=== PATIENT | male | born 1945 | race Hispanic/Latino ===

== ENCOUNTER 2021-11-07 09:06 | Inpatient (IN) | payer MEDICARE ==
[~2021-11-07] VITALS: Ht 167.6 cm; Wt 74.8 kg
[2021-11-07 10:18] LABS: BASOPHILS % 0.3 % (0.0-1.0); EOSINOPHILS # (AUTO) 0.2 (0.0-0.4); EOSINOPHILS % 2.6 % (0.0-6.0); LYMPHOCYTES # (AUTO) 1.3 (1.0-3.2); LYMPHOCYTES % 15.6 % (18.0-39.1); MEAN CORPUSCULAR HEMOGLOBIN 31.9 pg (28-32); MEAN CORPUSCULAR HGB CONC 30.4 g/dL (31-35); MEAN CORPUSCULAR VOLUME 104.9 fL (81-99); MONOCYTES # (AUTO) 0.7 (0.2-0.8); MONOCYTES % 8.1 % (4.4-11.3); NEUTROPHILS # (AUTO) 6.2 (2.1-6.9); NEUTROPHILS % 72.5 % (38.7-80.0); PLATELET COUNT 164 x10e3/uL (140-360); RED BLOOD COUNT 1.82 x10e6/uL (4.3-5.7); RED CELL DISTRIBUTION WIDTH 14.9 % (11.7-14.4)
[2021-11-07 10:20] LABS: HEMATOCRIT 19.1 % (38.2-49.6); HEMOGLOBIN 5.8 g/dL (14.0-18.0)
[2021-11-07 10:34] LABS: INR 0.95; PROTHROMBIN TIME 13.6 seconds (11.9-14.5)
[2021-11-07 10:35] LABS: PARTIAL THROMBOPLASTIN TIME 28.6 seconds (23.8-35.5)
[2021-11-07 10:48] LABS: ALANINE AMINOTRANSFERASE 12 IU/L (0-55); ALBUMIN/GLOBULIN RATIO 0.9 (0.8-2.0); ALKALINE PHOSPHATASE 64 IU/L (40-150); ANION GAP 25.1 mmol/L (8-16); BLOOD UREA NITROGEN 116 mg/dL (7-26); BUN/CREATININE RATIO 9 (6-25); CALCIUM 7.2 mg/dL (8.4-10.2); CARBON DIOXIDE 19 mmol/L (22-29); CHLORIDE 101 mmol/L (98-107); CREATINE KINASE 75 IU/L (30-200); CREATININE, SERUM 12.98 mg/dL (0.72-1.25); EST GLOMERULAR FILTRATION RATE 4 ML/MIN (60-); GLUCOSE 132 mg/dL (74-118); SODIUM 138 mmol/L (136-145)
[2021-11-07 11:05] LABS: MAGNESIUM 4.3 MG/DL (1.3-2.1); POTASSIUM 7.1 mmol/L (3.5-5.1)
[2021-11-07] MEDS ORDERED: SODIUM BICARBONATE 8.4% INJ 50 ML SYR IV STA (11:05)
[2021-11-07] MEDS ORDERED: ALBUTEROL SULF 0.083% NEB SOLN 3 ML NEB NEB STA (11:05)
[2021-11-07] MEDS ORDERED: DEXTROSE 50% SYRINGE 50 ML IV STA (11:05)
[2021-11-07] MEDS ORDERED: INSULIN REGULAR, HUMAN 100 UNIT/1 ML IV ONE (11:15)
[2021-11-07] MEDS ORDERED: CALCIUM GLUCONATE 10% INJ 4.65 MEQ in SODIUM CHLORIDE 0.9% 100 ML IV ONE (11:30)
[2021-11-07] MEDS ORDERED: DEXTROSE 50% SYRINGE 50 ML IV PRN (12:00)
[2021-11-07 13:30] LABS: CREATINE KINASE 74 IU/L (30-200)
[2021-11-07] MEDS: Morphine 2mg Syringe 2 MG/ML SYR IV PRN ×2 (14:29→21:58)
[2021-11-07] MEDS: ONDANSETRON HCL INJ 2MG/ML 2ML 2 MG/ML VIAL IV PRN ×2 (14:29→22:00)
[2021-11-07] MEDS ORDERED: SOD POLYSTYRENE SULFONATE SUSP 15 GM/60 ML BTL PO ONE (14:45)
[2021-11-07 15:09] LABS: FERRITIN 80.21 ng/mL (21.81-274.66)
[2021-11-07 15:39] VITALS: BP 125/56
[2021-11-07] MEDS ORDERED: FLOMAX0.4 MG PO (15:59)
[2021-11-07] MEDS ORDERED: ASPIRIN81 MG PO (15:59)
[2021-11-07] MEDS ORDERED: PLAVIX75 MG PO (15:59)
[2021-11-07 16:00] VITALS: BP 125/56
[2021-11-07] MEDS: INSULIN LISPRO 100 UNIT/1 ML 3ML VIAL SQ SCH ×2 (16:30→21:00)
[2021-11-07] MEDS ORDERED: SODIUM CHLORIDE 0.9% 1000ML 2,000 ML ONE (17:19)
[2021-11-07] MEDS ORDERED: SODIUM CHLORIDE 0.9% 250ML 250 ML ONE (17:54)
[2021-11-07 20:00] VITALS: BP 164/78
[2021-11-07 20:22] LABS: CREATINE KINASE 71 IU/L (30-200)
[2021-11-07 21:00] VITALS: BP 164/78
[2021-11-07] MEDS: TAMSULOSIN HCL 0.4 MG CAP PO SCH ×2 (21:00→23:55)
[2021-11-08] MEDS ORDERED: Vancomycin IV 1 GM in SODIUM CHLORIDE 0.9% 250ML 250 ML IV ONE ×2
[2021-11-08] MEDS ORDERED: ACETAMINOPHEN 1000 MG/100 ML IV PRN
[2021-11-08] MEDS ORDERED: SODIUM CHLORIDE 0.9% 250ML 250 ML ONE ×2 (00:09→00:21)
[2021-11-08] MEDS ORDERED: SODIUM CHLORIDE 0.9% 100 ML ONE (00:22)
[2021-11-08] MEDS ORDERED: ONDANSETRON HCL INJ 2MG/ML 2ML 2 MG/ML VIAL IV PRN (01:15)
[2021-11-08] MEDS ORDERED: LORAZEPAM INJ 2 MG/ML VIAL IV PRN (01:15)
[2021-11-08] MEDS ORDERED: HYDRALAZINE HCL 20 MG/ML VIAL IV PRN (01:15)
[2021-11-08 04:00] VITALS: BP 92/44
[2021-11-08 05:03] LABS: BASOPHILS % 0.3 % (0.0-1.0); EOSINOPHILS % 0.3 % (0.0-6.0); HEMATOCRIT 22.6 % (38.2-49.6); LYMPHOCYTES # (AUTO) 0.7 (1.0-3.2); LYMPHOCYTES % 6.1 % (18.0-39.1); MEAN CORPUSCULAR VOLUME 103.2 fL (81-99); MONOCYTES # (AUTO) 1.2 (0.2-0.8); MONOCYTES % 10.2 % (4.4-11.3); NEUTROPHILS # (AUTO) 9.3 (2.1-6.9); NEUTROPHILS % 82.4 % (38.7-80.0); PLATELET COUNT 126 x10e3/uL (140-360); RED BLOOD COUNT 2.19 x10e6/uL (4.3-5.7); RED CELL DISTRIBUTION WIDTH 15.9 % (11.7-14.4)
[2021-11-08 05:38] LABS: ALBUMIN 2.7 g/dL (3.5-5.0); ALBUMIN/GLOBULIN RATIO 0.8 (0.8-2.0); CALCIUM 7.1 mg/dL (8.4-10.2); CREATININE, SERUM 6.38 mg/dL (0.72-1.25)
[2021-11-08 05:59] LABS: CREATINE KINASE 73 IU/L (30-200)
[2021-11-08] MEDS: INSULIN LISPRO 100 UNIT/1 ML 3ML VIAL SQ SCH ×4 (07:30→20:32)
[2021-11-08 08:00] VITALS: BP 161/65
[2021-11-08] MEDS ORDERED: SODIUM CHLORIDE 0.9% 1000ML 2,000 ML IV PRN (08:15)
[2021-11-08] MEDS ORDERED: HEPARIN SOD (PORCINE) 1000 UNIT/ML SDV IV PRN ×2 (08:15→14:45)
[2021-11-08] MEDS: AMLODIPINE BESYLATE 5 MG TAB PO SCH (08:41)
[2021-11-08] MEDS ORDERED: ASPIRIN 81 MG CHEW TAB PO SCH (09:00)
[2021-11-08] MEDS ORDERED: CLOPIDOGREL BISULFATE 75 MG TAB PO SCH (09:00)
[2021-11-08] MEDS ORDERED: ACETAMINOPHEN 325 MG TAB PO PRN (10:00)
[2021-11-08 11:50] VITALS: BP 98/45
[2021-11-08] MEDS: EPOETIN ALFA-EPBX 10,000 UNIT/ML VIAL SC SCH (14:02)
[2021-11-08 16:10] VITALS: BP 108/56
[2021-11-08 20:00] VITALS: BP 133/62
[2021-11-08 21:00] VITALS: BP 133/62
[2021-11-08] MEDS: TAMSULOSIN HCL 0.4 MG CAP PO SCH (21:37)
[2021-11-09] VITALS (8 sets, daily range): BP systolic 106–165; BP diastolic 50–90
[2021-11-09 06:23] LABS: BASOPHILS % 0.4 % (0.0-1.0); EOSINOPHILS # (AUTO) 0.1 (0.0-0.4); EOSINOPHILS % 0.7 % (0.0-6.0); HEMATOCRIT 24.5 % (38.2-49.6); HEMOGLOBIN 7.4 g/dL (14.0-18.0); LYMPHOCYTES # (AUTO) 1.2 (1.0-3.2); LYMPHOCYTES % 11.2 % (18.0-39.1); MEAN CORPUSCULAR HEMOGLOBIN 31.5 pg (28-32); MEAN CORPUSCULAR HGB CONC 30.2 g/dL (31-35); MEAN CORPUSCULAR VOLUME 104.3 fL (81-99); MONOCYTES # (AUTO) 1.4 (0.2-0.8); MONOCYTES % 13.1 % (4.4-11.3); NEUTROPHILS # (AUTO) 7.8 (2.1-6.9); PLATELET COUNT 103 x10e3/uL (140-360); RED BLOOD COUNT 2.35 x10e6/uL (4.3-5.7)
[2021-11-09 06:37] LABS: ANION GAP 14.4 mmol/L (8-16); CALCIUM 7.7 mg/dL (8.4-10.2); CREATININE, SERUM 4.33 mg/dL (0.72-1.25); POTASSIUM 5.4 mmol/L (3.5-5.1)
[2021-11-09] MEDS: INSULIN LISPRO 100 UNIT/1 ML 3ML VIAL SQ SCH ×4 (07:30→20:56)
[2021-11-09] MEDS: AMLODIPINE BESYLATE 5 MG TAB PO SCH ×2 (09:00→09:31)
[2021-11-09] MEDS ORDERED: MANNITOL 25% 12.5GM/50ML 50 ML IV PRN (13:15)
[2021-11-09] MEDS ORDERED: ALBUMIN 25% 12.5GM 50ML 50 ML IV PRN (13:15)
[2021-11-09] MEDS ORDERED: HEPARIN SOD (PORCINE) 1000 UNIT/ML SDV IV PRN (13:15)
[2021-11-09] MEDS ORDERED: SODIUM CHLORIDE 0.9% 1000ML 2,000 ML IV PRN (13:15)
[2021-11-09] MEDS: TAMSULOSIN HCL 0.4 MG CAP PO SCH (20:56)
[2021-11-10] VITALS (8 sets, daily range): BP systolic 146–166; BP diastolic 63–78
[2021-11-10] MEDS: INSULIN LISPRO 100 UNIT/1 ML 3ML VIAL SQ SCH ×4 (07:30→20:33)
[2021-11-10] MEDS: AMLODIPINE BESYLATE 5 MG TAB PO SCH (09:29)
[2021-11-10] MEDS: TAMSULOSIN HCL 0.4 MG CAP PO SCH (20:22)
[2021-11-11] VITALS (9 sets, daily range): BP systolic 151–178; BP diastolic 20–71
[2021-11-11] MEDS: INSULIN LISPRO 100 UNIT/1 ML 3ML VIAL SQ SCH ×4 (07:30→21:00)
[2021-11-11] MEDS ORDERED: SODIUM CHLORIDE 0.9% 250ML 250 ML ONE (07:32)
[2021-11-11] MEDS ORDERED: BISACODYL 10 MG SUPP PR PRN (09:15)
[2021-11-11] MEDS ORDERED: LACTULOSE SYRUP 20 GM/30 ML UDC PO PRN (09:15)
[2021-11-11 09:45] LABS: BASOPHILS % 0.5 % (0.0-1.0); EOSINOPHILS # (AUTO) 0.2 (0.0-0.4); EOSINOPHILS % 2.8 % (0.0-6.0); HEMATOCRIT 23.5 % (38.2-49.6); HEMOGLOBIN 7.5 g/dL (14.0-18.0); LYMPHOCYTES # (AUTO) 1.1 (1.0-3.2); MEAN CORPUSCULAR HEMOGLOBIN 32.6 pg (28-32); MEAN CORPUSCULAR HGB CONC 31.9 g/dL (31-35); MEAN CORPUSCULAR VOLUME 102.2 fL (81-99); MONOCYTES # (AUTO) 0.6 (0.2-0.8); MONOCYTES % 9.4 % (4.4-11.3); NEUTROPHILS # (AUTO) 4.1 (2.1-6.9); PLATELET COUNT 117 x10e3/uL (140-360); RED CELL DISTRIBUTION WIDTH 13.5 % (11.7-14.4)
[2021-11-11] MEDS ORDERED: LACTULOSE SYRUP 20 GM/30 ML UDC PO ONE (10:00)
[2021-11-11 10:02] LABS: ALBUMIN/GLOBULIN RATIO 1.1 (0.8-2.0); ANION GAP 13.2 mmol/L (8-16); CALCIUM 8.1 mg/dL (8.4-10.2); CREATININE, SERUM 5.88 mg/dL (0.72-1.25); POTASSIUM 4.2 mmol/L (3.5-5.1)
[2021-11-11] MEDS ORDERED: ONDANSETRON HCL 4 MG ORAL DISINTEGRATING TAB PO PRN (10:30)
[2021-11-11] MEDS: SENNA-S TABLET PO SCH ×2 (12:52→16:19)
[2021-11-11] MEDS: EPOETIN ALFA-EPBX 10,000 UNIT/ML VIAL SC SCH (12:52)
[2021-11-11] MEDS: AMLODIPINE BESYLATE 5 MG TAB PO SCH (12:52)
[2021-11-11] MEDS ORDERED: nifedipine CR PO (14:44)
[2021-11-11] MEDS: TAMSULOSIN HCL 0.4 MG CAP PO SCH (20:32)
[2021-11-12] VITALS (8 sets, daily range): BP systolic 139–180; BP diastolic 63–76
[2021-11-12] MEDS: INSULIN LISPRO 100 UNIT/1 ML 3ML VIAL SQ SCH (07:30)
[2021-11-12] MEDS: SENNA-S TABLET PO SCH ×2 (07:54→16:36)
[2021-11-12] MEDS: AMLODIPINE BESYLATE 5 MG TAB PO SCH (07:54)
[2021-11-12] MEDS: CEPHALEXIN 500 MG CAP PO SCH ×3 (10:27→22:00)
[2021-11-12] MEDS: HYDRALAZINE HCL 25 MG TAB PO PRN (17:00)
[2021-11-12] MEDS: TAMSULOSIN HCL 0.4 MG CAP PO SCH (21:00)
[2021-11-13] VITALS (7 sets, daily range): BP systolic 150–187; BP diastolic 66–79
[2021-11-13] MEDS: CEPHALEXIN 500 MG CAP PO SCH ×2 (06:21→13:28)
[2021-11-13 08:29] LABS: BASOPHILS # (AUTO) 0.1 (0.0-0.1); BASOPHILS % 0.7 % (0.0-1.0); EOSINOPHILS # (AUTO) 0.2 (0.0-0.4); EOSINOPHILS % 3.2 % (0.0-6.0); HEMATOCRIT 25.6 % (38.2-49.6); HEMOGLOBIN 8.1 g/dL (14.0-18.0); LYMPHOCYTES # (AUTO) 1.2 (1.0-3.2); LYMPHOCYTES % 16.8 % (18.0-39.1); MEAN CORPUSCULAR HEMOGLOBIN 32.3 pg (28-32); MEAN CORPUSCULAR HGB CONC 31.6 g/dL (31-35); MONOCYTES # (AUTO) 0.8 (0.2-0.8); MONOCYTES % 10.8 % (4.4-11.3); NEUTROPHILS # (AUTO) 4.9 (2.1-6.9); NEUTROPHILS % 68.1 % (38.7-80.0); PLATELET COUNT 153 x10e3/uL (140-360); RED BLOOD COUNT 2.51 x10e6/uL (4.3-5.7); RED CELL DISTRIBUTION WIDTH 13.4 % (11.7-14.4)
[2021-11-13 08:51] LABS: ALBUMIN 3.2 g/dL (3.5-5.0); ANION GAP 14.5 mmol/L (8-16); CALCIUM 8.7 mg/dL (8.4-10.2); CREATININE, SERUM 6.6 mg/dL (0.72-1.25); POTASSIUM 4.5 mmol/L (3.5-5.1)
[2021-11-13] MEDS: AMLODIPINE BESYLATE 10 MG TAB PO SCH ×2 (09:00→11:15)
[2021-11-13] MEDS: SENNA-S TABLET PO SCH (09:00)
[2021-11-13] MEDS: HYDRALAZINE HCL 25 MG TAB PO PRN (11:15)
[2021-11-13] MEDS: EPOETIN ALFA-EPBX 10,000 UNIT/ML VIAL SC SCH (13:28)
== END 2021-11-13 16:05 | disposition left against medical advice (07) | DRG 640 ==
LOC: ER 09:12 → ERHOLD 12:01 → MED/SURG2 15:49
PROVIDERS: ADMIT Internal Medicine; ATTEND Internal Medicine
PROC: 5A1D70Z Performance of Urinary Filtration, Intermittent, Less than 6 Hours Per Day (ICD-10-PCS; principal; 2021-11-07)
DX: E87.5 Hyperkalemia (principal); N18.6 End stage renal disease; G93.41 Metabolic encephalopathy; I12.0 Hypertensive chronic kidney disease with stage 5 chronic kidney disease or end stage renal disease; Z99.2 Dependence on renal dialysis; R41.0 Disorientation, unspecified; D63.1 Anemia in chronic kidney disease; E87.2 Acidosis; Z91.19 Patient's noncompliance with other medical treatment and regimen; Z20.822 Contact with and (suspected) exposure to COVID-19
CPT/HCPCS: 36415; 71045; 80048; 80053; 82550; 82553; 82728; 82948; 83540; 83735; 84466; 84484; 85025; 85610; 85730; 86704; 86706; 86850; 86900; 86920; 87040; 87340; 90962; 93005; 94640; 94799; 99284; J0610; J0696; J1644; J1817; J2270; J2405; J7030; J7050; J7799; P9016; U0002